=== PATIENT | male | born 1985 | race Caucasian/White ===

== ENCOUNTER 2016-07-30 20:17 | Emergency (ER) | payer OTHER, BC ==
[~2016-07-30] VITALS: Ht 170.2 cm; Wt 76.7 kg
[~2016-07-30 20:17] MED LIST: CEPH-583 PO; CETI10CA19 PO; ESCI5TAB PO; OMEP20CA81 PO
[2016-07-30 20:18] VITALS: Ht 170.2 cm; Wt 76.7 kg
--- OUTSIDE RECORDS SUMMARY | 2016-07-30 20:21 | XMS REPORT | Continuity of Care Document ---
Author Author [facility] Organization [facility] Address Unknown Phone Unavailable Support Name Relationship Address Phone CLIENT, BILLING Caregiver Unknown Unavailable KANE ARMENTA Caregiver [address] [facility] [place] [address] Unavailable GALILEA PALMA Next Of Kin [address], [place] [id number] Insurance Providers Guarantor Vaughn Wilkerson Address [address] [place] [address] Email DENIED/NO PORTAL Payer Workers Compensation Subscriber's Name Vaughn Wilkerson Relationship 18 Self Problems Past Problems Medical Problem Onset Date Laceration of leg Unknown Medications Current Home Medications Medication Dose Units Route Directions Days Qty Instructions Start Date Cephalexin (Keflex) 500 Mg Capsule 500 Mg Oral Three Times A Day 30 Capsule 01/29/16 Cetirizine Hcl (Zyrtec) 10 Mg Capsule 1 Cap Oral Daily 01/29/16 Escitalopram Oxalate (Lexapro) 5 Mg Tablet Unknown Dose Oral Daily 30 Tablet 01/29/16 Omeprazole (Prilosec) 20 Mg Capsule.dr 20 Mg Oral 03/30/11 Past Home Medications Medication Directions Ordered Status Esomeprazole Mag Trihydrate (Nexium) 20 Mg Capsule.dr 20 Mg Oral Daily 03/16 Discontinued Social History Social History Problem Response Recorded Date/Time Onset Date Status Hx Substance Use Y STOPPED 200603/30/2011 11:40am Not Applicable Not Applicable Hx Alcohol Use Y SOMETIMES 03/30/2011 11:40am Not Applicable Not Applicable Hospital Discharge Instructions Current inpatient/outpatient. Discharge instructions are currently unavailable. Plan of Care Current inpatient/outpatient. The plan of care is currently unavailable Functional Status No functional status results. Allergies, Adverse Reactions, Alerts Allergen Type Severity Reaction Status Last Updated zolpidem tartrate Allergy Unknown Active 01/29/16 Immunizations Immunization Event Date Type Not Given Reason Dose Number Lot Number Stick Feeder VIS Given Tdap 01/29/16 Administered 1 [id number] CardioKinetix 06/05/14 Query Response on File Recorded Date/Time Hx Influenza Vaccination No 03/30/11 11:40am Hx Pneumococcal Vaccination No 03/30/11 11:40am Hx Influenza Vaccination No 03/30/11 11:40am Tdap Vaccine Hx 01/29/16 01/29/16 1:32am Vital Signs Acute Vital Signs Vital Response Date/Time Temperature (Fahrenheit) 97.5 deg F (96.8 - 99.1) 01/29/2016 1:40am Temperature (Calculated Celsius) 36.10414 degrees C (36.0 - 37.3) 01/29/2016 1:40am Pulse Rate (adult) 71 bpm (60 - 100) 01/29/2016 1:40am Respiratory Rate 16 breaths/min (10 - 20) 01/29/2016 1:40am O2 Sat by Pulse Oximetry 98 % (90 - 100) 01/29/2016 1:40am Blood Pressure 126/80 mm Hg 01/29/2016 1:40am Height (Feet) 5 feet 01/29/2016 12:23am Height (Inches) 7.00 inches 01/29/2016 12:23am Weight (Kilograms) 79.600 kg 01/29/2016 12:23am Body Mass Index (BMI) 27.0 01/29/2016 12:23am Results No known relevant diagnostic tests, laboratory data and/or discharge summary. Procedures No known history of procedures. Encounters Encounter Location Arrival/Admit Date Discharge/Depart Date Attending Provider Registered Referred [facility] 01/29/16 1:32am CLIENT, BILLING Departed Emergency Room [facility] 01/28/16 11:57pm 01/29/16 1: 40am JOSE SEGOVIA MD
--- NOTE | 2016-07-30 20:30 | ERPDOC ---
Departure Disposition Decision Date: Jul 30, 2016 Disposition Decision Time: 21:06 Disposition: 01 DISCHARGED HOME, SELF-CARE Impression Impression Impression: Primary Impression: Finger contusion Encounter type: initial encounter Finger: little finger Damage to nail status: without damage Laterality: left Qualified Codes: S60.052A - Contusion of left little finger without damage to nail, initial encounter Severity: Moderate Condition: Stable Seen By: Mid-level only Referrals: KANE ARMENTA (Family) Patient Instructions: Contusion in Adults (ED) Problems/Meds/Labs Reviewed?: Yes Medications reviewed and manag: Yes Additional Instructions: Leonel tape the pinky finger to the ring finger as needed for comfort. Ice and elevate and may use Ibuprofen and/or Tylenol as needed for pain. Follow up with your primary care provider if needed. Follow up care ordered?: Yes Mental Status: Alert HPI General Chief Complaint: Upper Extremity Injury Stated Complaint: POSS BROKEN LFT HAND Time Seen by Provider: 20:25 Source: patient Exam Limitations: no limitations HPI Hand/Forearm Initial Comments He was at work tonight and smashed his left pinky finger between two heavy metal objects. Has had pain in the left pinky fingers since then. Does have intact sensation and circulation to the finger tips. Denies any pain in the left MCP or MCP joint. Occurred At: home Onset: Rapid Duration: 1 hr Severity: moderate Location: left: 5th finger Method of Injury: direct blow Associated Symptoms: pain with extension, pain with flexion, pain with grasp, DENIES: bruising, redness, swelling Allergies: Coded Allergies: zolpidem tartrate (Verified Allergy, Unknown, 07/30/16) Past History Past Medical History ENMT: allergies Respiratory: asthma Surgical History Denies Surgeries Family History Family History: Negative Vaccines Hx Influenza Vaccination: No Hx Pneumococcal Vaccination: No Social History Tobacco Usage: none Alcohol Usage: none Drug Usage: none IV Drug Use: No Review of Systems Musculoskeletal General: joint pain (left pinky finger), pain (left pinky finger), tenderness ( left pinky finger), DENIES: joint swelling Integumentary Skin: DENIES: color change, infections, rash, ulcers Neurological General: DENIES: numbness, tingling Exam General General Nourishment: well nourished, well developed, appears stated age, no acute distress, adult General Body Habitus: well groomed Vital Signs: RN Vital Signs have been reviewed: Yes Fastrak Hand/Forearm Hand/Forearm : Upper Extremity: Left Elbow: extension intact, flexion intact, NOT FOUND: deformity, ecchymosis, erythema, swelling, tender Forearm: pronation intact, supination intact, NOT FOUND: deformity, ecchymosis, erythema, laceration, swelling, tender Wrist: ROM intact, NOT FOUND: deformity, ecchymosis, erythema, snuff box tenderness, swelling, tender, thenar eminence tender Hand: NOT FOUND: deformity, ecchymosis, erythema, swelling, tender Fingers: cap refill <2sec ea digit, impaired abduction, impaired adduction, impaired extension, impaired flexion, impaired grasp, soft touch intact, tender (left pinky finger over the proximal, middle, and distal phalanx), NOT FOUND: deformity, ecchymosis, erythema, laceration, nail avulsion, rotational deformity , subungual hematoma, swelling Radial Pulse: 2+ Neurologic RN Documented GCS Eye Opening: Verbal: Motor: Total: Differential Diagnoses Considering: Contusion, Dislocation, Fracture, Sprain, Strain Progress Results/Orders Orders Procedure Category Date Status Time Fingers Left 2 View RAD 07/30/16 Taken MIN Hydrocodone/Acetaminophen PHA 07/30/16 Complete ([place] 5/325) 20:45 Medications Current ED Medications Acetaminophen/ Hydrocodone Bitart ([place] 5/325) 1 tab O ONCE PO Last administered on 07/30/16t 20:47; Start 07/30/16 at 20:45; Stop 07/30/16 at 20:46 ; Status DC Progress Progress Xray today is negative for fracture. Will have him leonel tape the finger and ice and elevate. Follow up with work comp provider if not improving at all. Xray Xray : Reason for Exam: left pinky finger injury Xray: Finger(s) L Interpretation: Normal BUTCH IBANEZ APRN Jul 30, 2016 20:30
[2016-07-30] MEDS ORDERED: HYDROCODONE/APAP 5 mg/325 mg TABLET PO ONE (20:45)
[2016-07-30 21:20] VITALS: BP 123/81; PULSE 67; RESP 20; TEMP 98.2; O2SAT 98
--- NOTE | 2016-07-31 08:10 | DI ---
Indication: ITS.REASON: Crush injury to the left pinky finger injury PROCEDURE: FINGERS LEFT 2 VIEW MIN: Encounter: Initial Comparison: None Findings: There is no acute fracture, dislocation or malalignment identified. Impression: No acute osseous abnormality. .
== END 2016-07-30 21:20 | disposition home or self-care (01) ==
LOC: ED 20:17
DX: S60.052A Contusion of left little finger without damage to nail, initial encounter (principal); W23.0XXA Caught, crushed, jammed, or pinched between moving objects, initial encounter; Y93.9 Activity, unspecified; Y92.63 Factory as the place of occurrence of the external cause; Y99.0 Civilian activity done for income or pay